=== PATIENT | female | born 1990 | race Caucasian/White ===

== ENCOUNTER 2016-10-04 12:00 | Emergency (ER) | payer OTHER ==
[2016-10-04 13:46] VITALS: BP 110/63
[2016-10-04] MEDS ORDERED: Ibuprofen TAB* 600 MG PO ONE (13:51)
--- NOTE | 2016-10-04 13:51 | UC ---
FLU HPI - HPI Summary HPI Summary: 1 day of cough, chills, body aches, nausea after eating a cheeseburger, - History of Current Complaint Chief Complaint: UCGeneralIllness Stated Complaint: FLU COMPLAINT Time Seen by Provider: 10/04/16 13:32 Hx Obtained From: Patient Hx Last Menstrual Period: 2015- Depo Shot ?: No Onset/Duration: Sudden Onset, Lasting Days - 1, Still Present Severity Currently: Moderate Severity Initially: Moderate Pain Intensity: 5 Pain Scale Used: 0-10 Numeric Associated Signs & Symptoms: Positive: Fever, Myalgia, Cough, Sore Throat, Nasal Congestion, Headache - Allergy/Home Medications Allergies/Adverse Reactions: Allergies Allergy/AdvReac Type Severity Reaction Status Date / Time No Known Allergies Allergy Verified 10/04/16 13:34 Home Medications: Home Medications [id number] W/ APAP [Tylenol Cold & Flu Severe [id number] mg] 2 tab PO PRN 10/04/16 [History] PMH/Surg Hx/FS Hx/Imm Hx Previously Healthy: No Endocrine History Of: Reports: Thyroid Disease - Hyperthryoid Denies: Diabetes Cardiovascular History Of: Denies: Cardiac Disorders, Hypertension, Pacemaker/ICD Respiratory History Of: Reports: Asthma Denies: COPD GI/ History Of: Denies: Ulcer - Surgical History Surgical History: Yes Surgery Procedure, Year, and Place: torsion ovaries as child; Jul 2015 [place] --Right distal tibia-curettage of lesion with bone grafting/prohylactic internal fixation - Family History Known Family History: Positive: Hypertension - Social History Occupation: Unemployed Lives: With Family Alcohol Use: None Substance Use Type: None Substance Use Comment - Amount & Last Used: oxycodone Smoking Status (MU): Current Every Day Smoker Amount Used/How Often: 3 cigarettes/day Have You Smoked in the Last Year: Yes Household Exposure Type: Cigarettes Cessation Counseling: Counseled 3+Min - 10 Min - Immunization History Most Recent Influenza Vaccination: Not UTD Review of Systems Constitutional: Fever, Chills, Fatigue Skin: Negative Eyes: Negative ENT: Sore Throat, Ear Ache, Nasal Discharge Respiratory: Cough Cardiovascular: Negative Gastrointestinal: Negative Genitourinary: Negative Motor: Negative Neurovascular: Negative Musculoskeletal: Arthralgia, Myalgia Neurological: Negative Psychological: Negative All Other Systems Reviewed And Are Negative: Yes Physical Exam Triage Information Reviewed: Yes Appearance: Ill-Appearing - mild, Pain Distress - mild, Thin Vital Signs: Initial Vital Signs Temp 98.3 F 10/04/16 13:38 Pulse 71 10/04/16 13:38 Resp 16 10/04/16 13:38 BP 110/63 10/04/16 13:38 Pulse Ox 99 10/04/16 13:38 Vital Signs Reviewed: Yes Eye Exam: Normal Eyes: Positive: Conjunctiva Clear ENT Exam: Normal ENT: Positive: Normal ENT inspection, Hearing grossly normal, Pharynx normal, Nasal congestion, Nasal drainage, TMs normal. Negative: Tonsillar swelling, Tonsillar exudate, Trismus, Muffled/hoarse voice Dental Exam: Normal Neck exam: Normal Neck: Positive: Supple, Nontender, No Lymphadenopathy Respiratory Exam: Normal Respiratory: Positive: Chest non-tender, Lungs clear, Normal breath sounds, No respiratory distress, No accessory muscle use Cardiovascular Exam: Normal Cardiovascular: Positive: RRR, No Murmur, Pulses Normal, Brisk Capillary Refill Musculoskeletal Exam: Normal Musculoskeletal: Positive: Strength Intact, ROM Intact, No Edema Neurological Exam: Normal Neurological: Positive: Alert, Muscle Tone Normal Psychological Exam: Normal Psychological: Positive: Normal Response To Family Skin Exam: Normal Diagnostics - Laboratory ABG Interpretation: Rapid Flu (A+) Flu Course/Dx - Course Course Of Treatment: Tamiflu, albuterol, robitussin and codiene, increase fluids follow with pcp re-check prn - Differential Dx/Diagnosis Differential Diagnosis/HQI/PQRI: Bronchitis, Influenza, RSV, Upper Respiratory Infection Provider Diagnoses: Influenza A Discharge - Discharge Plan Condition: Stable Disposition: HOME Prescriptions: Albuterol HFA INHALER* [Ventolin HFA Inhaler*] 2 puff INH Q4H PRN #1 mdi PRN Reason: Cough Oseltamivir CAP* [Tamiflu CAP*] 75 mg PO BID #10 cap guaiFENesin/CODIEN 100MG-10MG* [Robitussin AC 100Mg-10Mg*] 5 - 10 ml PO Q4H PRN #90 udc MDD 40 PRN Reason: cough Patient Education Materials: Ibuprofen (By mouth), Clear Liquid Diet (ED), How to Use a Metered-Dose Inhaler (ED), Influenza (ED) Referrals: Adryan Walter MD [Primary Care Provider] - If Needed
== END 2016-10-04 14:35 | disposition home or self-care (01) ==
LOC: UCEAST 12:00
DX: J10.1 Influenza due to other identified influenza virus with other respiratory manifestations (principal); F17.210 Nicotine dependence, cigarettes, uncomplicated; Z71.6 Tobacco abuse counseling
CPT/HCPCS: 87502; 99212; A9270-GY; G0463

== ENCOUNTER 2016-10-08 16:00 | Emergency (ER) | payer OTHER | END 2016-10-08 17:41 | disposition left against medical advice (07) | LOC: UCEAST 16:00 | DX: R05 Cough (principal); M54.9 Dorsalgia, unspecified; Z53.21 Procedure and treatment not carried out due to patient leaving prior to being seen by health care provider ==

== ENCOUNTER 2016-10-08 17:11 | Emergency (ER) | payer OTHER ==
--- NOTE | 2016-10-08 18:00 | ED ---
Respiratory - HPI Summary HPI Summary: 26 F presents with cough for a week. She was seen at and diagnosed with influenza and given tamiflu which she took. Since then her cough has gotten worst. She admits to SOB and posterior rib pain that is constant. She denies any chest pain, palpitations, or swelling in the legs. She is on control and does smoke. She does not have a history of blood clots and denies any recent travel or family history of blood clots. She was given an inhaler at and some cough syrup which she states helps but she ran out of the cough syrup. - History of Current Complaint Chief Complaint: EDBackInjuryPain Stated Complaint: BACK PAIN/COUGH Time Seen by Provider: 10/08/16 17:32 Pain Intensity: 8 - Allergy/Home Medications Allergies/Adverse Reactions: Allergies Allergy/AdvReac Type Severity Reaction Status Date / Time No Known Allergies Allergy Verified 10/08/16 17:16 PMH/Surg Hx/FS Hx/Imm Hx Endocrine/Hematology History: Reports: Hx Thyroid Disease - Hyperthryoid Denies: Hx Diabetes Cardiovascular History: Denies: Hx Hypertension, Hx Pacemaker/ICD Respiratory History: Reports: Hx Asthma Denies: Hx Chronic Obstructive Pulmonary Disease (COPD) GI History: Denies: Hx Ulcer Musculoskeletal History: Reports: 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 Sensory History: Denies: Hx Hearing Aid Psychiatric History: Denies: Hx Panic Disorder - Surgical History Surgery Procedure, Year, and Place: torsion ovaries as child; Jul 2015 [place] --Right distal tibia-curettage of lesion with bone grafting/prohylactic internal fixation - Immunization History Date of Tetanus Vaccine: Unk Date of Influenza Vaccine: Fall 2012 Infectious Disease History: No Infectious Disease History: Denies: Hx Clostridium Difficile, Hx Hepatitis, Hx Human Immunodeficiency Virus (HIV), Hx of Known/Suspected MRSA, Hx Shingles, Hx Tuberculosis, Hx Known/ Suspected VRE, Hx Known/Suspected VRSA, History Other Infectious Disease, Traveled Outside the [place] in Last 30 Days - Family History Known Family History: Positive: Hypertension - Social History Alcohol Use: None Substance Use Type: Reports: None Substance Use Comment - Amount & Last Used: oxycodone Smoking Status (MU): Current Every Day Smoker Amount Used/How Often: 3 cigarettes/day Have You Smoked in the Last Year: Yes Review of Systems Negative: Fever Negative: Chest Pain Positive: Shortness Of Breath, Cough Positive: Nausea. Negative: Abdominal Pain, Vomiting, Diarrhea All Other Systems Reviewed And Are Negative: Yes Physical Exam Triage Information Reviewed: Yes Vital Signs On Initial Exam: Initial Vitals Temp Pulse Resp BP Pulse Ox 98.6 F 69 18 118/61 100 10/08/16 17:13 10/08/16 17:13 10/08/16 17:13 10/08/16 17:13 10/08/16 17:13 Vital Signs Reviewed: Yes Appearance: Positive: Well-Appearing Skin: Positive: Warm, Dry Head/Face: Positive: Normal Head/Face Inspection Eyes: Positive: Normal, Conjunctiva Clear ENT: Positive: Normal ENT inspection, Pharynx normal, TMs normal Neck: Positive: Supple, Nontender, No Lymphadenopathy Respiratory/Lung Sounds: Positive: Clear to Auscultation, Breath Sounds Present , Other - neg egophony Cardiovascular: Positive: Normal, RRR Abdomen Description: Positive: Nontender, Soft Bowel Sounds: Positive: Present Diagnostics - Vital Signs Vital Signs Temp Pulse Resp BP Pulse Ox 10/08/16 17:13 98.6 F 69 18 118/61 100 - Laboratory Result Diagrams: 10/08/16 18:00 10/08/16 18:00 Lab Statement: Any lab studies that have been ordered have been reviewed, and results considered in the medical decision making process. - Radiology chest Xray Interpretation: No Acute Changes - IMPRESSION: No radiographic evidence of acute cardiopulmonary disease. Radiology Interpretation Completed By: Radiologist Disposition - Course Course Of Treatment: 26 F presents with cough for a week. admits to SOB, nausea , and rib pain to the back. lungs CTA. pulse ox:100 and normal heart rate. has risk factors for PE: smoking, control will do d-dimer. d-dimer normal. labs normal. chest xray normal. will treat with zofran and cough suppressant, explained cough can last up to 4 weeks, will have follow up with primary, patient understands and agrees with plan - Differential Dx - Cardiopulmonary Differential Diagnoses - Cardiopulmonary: Bronchitis, Influenza, Pulmonary Embolism, Other - pneumonia - Diagnoses Provider Diagnoses: Cough Discharge - Discharge Plan Condition: Good Disposition: HOME Prescriptions: Ondansetron ODT TAB* [Zofran Odt TAB*] 4 mg PO Q6H PRN #10 tab.odt PRN Reason: Nausea guaiFENesin/CODIEN 100MG-10MG* [Robitussin AC 100Mg-10Mg*] 5 ml PO Q4H PRN #120 udc MDD 6 PRN Reason: Cough Patient Education Materials: Acute Bronchitis (ED) Referrals: Adryan Walter MD [Primary Care Provider] - Additional Instructions: Take cough suppressant 5ml (1 teaspon) every 4 hours as need for cough Use inhaler two puff every 4 hours for cough as needed Take zofran every 6 hours as needed for nausea Use saline in the nose Use humidifier or place warm bowls of water around the room Take Tylenol and ibuprofen for pain/fever every 6 hours Increase fluid intake and eat small amounts of food as tolerated Follow up with primary care physician if no improvement in 5 days Return to ED if develop chest pain , shortness of breath, or any new or worsening symptoms
[2016-10-08 18:12] LABS: Hematocrit 39 % (35-47); Hemoglobin 13.4 g/dl (12.0-16.0); Mean Corpuscular HGB Conc 34 g/dl (31-36); Mean Corpuscular Hemoglobin 30 pg (27-31); Mean Corpuscular Volume 89 fL (80-97); Mean Platelet Volume 9 um3 (7.4-10.4); Red Blood Count 4.44 10^6/ul (4.0-5.4); Red Cell Distribution Width 13 % (10.5-15); White Blood Count 6.6 10^3/ul (3.5-10.8)
[2016-10-08 18:28] LABS: Albumin 4.2 g/dL (3.2-5.2); BUN/Creatinine Ratio 20.3 (8-20); Calcium 9.4 mg/dL (8.6-10.3); EGFR Non-African American 94.9 (>60); Potassium 3.5 mmol/L (3.5-5.0); Total Bilirubin 0.3 mg/dL (0.2-1.0); Total Protein 7.2 g/dL (6.4-8.9)
--- NOTE | 2016-10-08 18:42 | RAD ---
INDICATION: Back pain and cough COMPARISON: None TECHNIQUE: PA and lateral views of the chest were obtained. FINDINGS: The heart and mediastinum are normal in size and contour. The lungs are grossly clear. There is no evidence of large pleural effusion. Visualized bones are normal for the patient's age. There is no radiographic evidence of free air beneath the diaphragm IMPRESSION: No radiographic evidence of acute cardiopulmonary disease.
[2016-10-08] MEDS ORDERED: guaiFENesin/CODIEN 100MG-10MG* 5 ML UDC PO ONE (19:28)
[2016-10-08 20:04] VITALS: BP 110/73
== END 2016-10-08 20:00 | disposition home or self-care (01) ==
LOC: ED 17:11
DX: R05 Cough (principal); R06.02 Shortness of breath; R11.0 Nausea; F17.210 Nicotine dependence, cigarettes, uncomplicated
CPT/HCPCS: 36415; 71020; 80053; 85025; 85379; 86141; 99282; A9270-GY

== ENCOUNTER 2017-08-20 21:00 | Emergency (ER) | payer OTHER ==
[2017-08-20] MEDS ORDERED: Fluorescein Sodium TOPICAL* 1 MG TEST ONE (22:02)
[2017-08-20] MEDS ORDERED: Tetracaine 0.5% OPTH.SOL 4 ML* 1 DROP BTL ONE (22:02)
[2017-08-20] MEDS ORDERED: Artificial Tears* 15 ML BTL RIGHT EYE ONE (22:19)
[2017-08-20 22:44] VITALS: BP 116/68
[2017-08-20] MEDS ORDERED: Fluorescein Sodium TOPICAL* 1 MG TEST OPHTHALMIC ONE (22:50)
[2017-08-20] MEDS ORDERED: Tetracaine 0.5% OPTH.SOL 4 ML* 1 DROP BTL RIGHT EYE ONE (22:50)
--- NOTE | 2017-08-31 15:44 | ED ---
Throat Pain/Nasal Congestion - HPI Summary HPI Summary: Pt here w/ Rt eye discomfort which started earlier today. [place] like something went into her eye when she opened a spice cupboard earlier today. A FB has not been identified. She then rinsed her eye with her mother's contact cleaning solution (not plain saline). Pain worse since using this. Eye is irritated but not watering, no d/c, no change in vision, photophobia or pain w/ movement. Reports she feels like something is scratching her eye. Does not wear contact lenses and has not used makeup today. - History of Current Complaint Chief Complaint: EDEyeProblem Time Seen by Provider: 08/20/17 21:18 Hx Obtained From: Patient, Family/Senior Windows Engineer - mom - Allergies/Home Medications Allergies/Adverse Reactions: Allergies Allergy/AdvReac Type Severity Reaction Status Date / Time No Known Allergies Allergy Verified 10/08/16 17:16 PMH/Surg Hx/FS Hx/Imm Hx Previously Healthy: Yes Endocrine/Hematology History: Reports: Hx Thyroid Disease - Hyperthryoid Denies: Hx Diabetes Cardiovascular History: Denies: Hx Hypertension, Hx Pacemaker/ICD Respiratory History: Reports: Hx Asthma Denies: Hx Chronic Obstructive Pulmonary Disease (COPD) GI History: Denies: Hx Ulcer Musculoskeletal History: Reports: 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 Sensory History: Denies: Hx Contacts or Glasses, Hx Hearing Aid Opthamlomology History: Denies: Hx Contacts or Glasses Psychiatric History: Denies: Hx Panic Disorder - Surgical History Surgery Procedure, Year, and Place: torsion ovaries as child; Jul 2015 [place] --Right distal tibia-curettage of lesion with bone grafting/prohylactic internal fixation - Immunization History Date of Tetanus Vaccine: Unk Date of Influenza Vaccine: Fall 2012 Infectious Disease History: No Infectious Disease History: Denies: Hx Clostridium Difficile, Hx Hepatitis, Hx Human Immunodeficiency Virus (HIV), Hx of Known/Suspected MRSA, Hx Shingles, Hx Tuberculosis, Hx Known/ Suspected VRE, Hx Known/Suspected VRSA, History Other Infectious Disease, Traveled Outside the [place] in Last 30 Days - Family History Known Family History: Positive: Hypertension - Social History Lives: With Family Alcohol Use: None Hx Substance Use: No Substance Use Type: Reports: None Substance Use Comment - Amount & Last Used: oxycodone Hx Tobacco Use: Yes Smoking Status (MU): Current Every Day Smoker Amount Used/How Often: 3 cigarettes/day Have You Smoked in the Last Year: Yes Review of Systems Constitutional: Negative Negative: Fever, Chills, Fatigue Positive: Erythema. Negative: Photophobia, Blurred Vision, Diplopia, Drainage ENT: Negative Negative: Epistaxis, Dental Pain, Sore Throat, Ear Ache, Nasal Discharge Cardiovascular: Negative Respiratory: Negative Gastrointestinal: Negative Positive: no symptoms reported Musculoskeletal: Negative Skin: Negative Negative: Rash Neurological: Negative Negative: Headache Positive: Anxious All Other Systems Reviewed And Are Negative: Yes Physical Exam Triage Information Reviewed: Yes Vital Signs On Initial Exam: Initial Vitals Temp Pulse Resp BP Pulse Ox 98.0 F 81 16 113/50 98 08/20/17 21:00 08/20/17 21:00 08/20/17 21:00 08/20/17 21:00 08/20/17 21:00 Vital Signs Reviewed: Yes Appearance: Positive: Well-Appearing, Well-Nourished, Pain Distress - Pt does not appear to be in distress during her daughter's URI evaluation (they came in together today) but appears to be in distress, holding eye when she is being evaluated Skin: Positive: Warm, Skin Color Reflects Adequate Perfusion, Dry - no edema or erythema of tissue about the orbital/periorbital region Head/Face: Positive: Normal Head/Face Inspection - NTTP, no edema Eyes: Positive: EOMI, CATHERINE, Conjunctiva Clear, Other: - sclera w/ mild injection. Negative: Discharge ENT: Positive: Normal ENT inspection, Hearing grossly normal, Pharynx normal, TMs normal. Negative: Pharyngeal erythema, Nasal congestion, Nasal drainage Neck: Positive: Supple, Nontender, No Lymphadenopathy Respiratory/Lung Sounds: Positive: Breath Sounds Present Cardiovascular: Positive: Normal Musculoskeletal: Positive: Normal, Strength/ROM Intact Neurological: Positive: Normal, Sensory/Motor Intact, Alert, Oriented to Person Place, Time, CN Intact II-III Psychiatric: Positive: Anxious - agitated, anxious - Romeo Coma Scale Coma Scale Total: 15 Procedures - Eye Procedure Alcaine Drops Administered: No - tetracaine Eye FB Removal: removal w/ cotton swab - <1mm brown evelyn observed and removed from 12:00 within iris Eye Irrigated w/ Saline (ccs): 5 - pt reports relief Diagnostics - Vital Signs Vital Signs Temp Pulse Resp BP Pulse Ox 08/20/17 22:42 97.8 F 86 18 116/68 98 08/20/17 21:00 98.0 F 81 16 113/50 98 - Laboratory Lab Statement: Any lab studies that have been ordered have been reviewed, and results considered in the medical decision making process. Re-Evaluation - Re-Evaluation First Eval Change: Improved - pt reports relief after tetracaine drops, removal of object and saline flush - still has some irritation EENT Course/Dx - Course Course Of Treatment: Pt appears to have a tiny evelyn of FB in eye - suspect this may be what was causing her issues - no abrasion, no Siedel's sign observed on fluouresceine exam. Pt may have residual irritation from evelyn as it may be a spice from cupboard incident earlier in the day. Discussed the importance of flushing her eye with saline to help remove irritant and f/u w/ Ophtholomogist tomorrow if sx persist. If danger s/sx present, return to ED. Pt agrees w/ plan. - Diagnoses Provider Diagnoses: Foreign body of right eye Discharge - Discharge Plan Condition: Stable Disposition: HOME Patient Education Materials: Eye Foreign Body (ED) Referrals: Tucker Mott MD [Medical Doctor] - Additional Instructions: You appear to have had a small evelyn in your eye - this was flushed out and no abrasion was identified. It is recommended that you flush your eye with saline eye wash 5-6 x over the next 24 hours (while awake) to reduce irritation/ discomfort. If symptoms persist, call Dr. Mott's office tomorrow for further evaluation. *If you have abrupt loss of vision, change in vision, return to ED
== END 2017-08-20 22:42 | disposition home or self-care (01) ==
LOC: ED 21:00
DX: T15.91XA Foreign body on external eye, part unspecified, right eye, initial encounter (principal); X58.XXXA Exposure to other specified factors, initial encounter; Y92.9 Unspecified place or not applicable; F17.210 Nicotine dependence, cigarettes, uncomplicated; E05.90 Thyrotoxicosis, unspecified without thyrotoxic crisis or storm
CPT/HCPCS: 99282; A9270-GY

== ENCOUNTER 2018-06-23 15:37 | Emergency (ER) | payer OTHER ==
[2018-06-23 16:13] VITALS: BP 99/58
--- NOTE | 2018-06-23 16:49 | UC ---
Complaint Female HPI - HPI Summary HPI Summary: 3 days of R flank pain w/ intermittent dysuria, vaginal discharge. has hx of ovarian torsion and kidney stones. uses depo for control. Appendectomy in the past. - History Of Current Complaint Chief Complaint: UCGU Stated Complaint: BACK PAIN Time Seen by Provider: 06/23/18 16:47 Hx Obtained From: Patient Hx Last Menstrual Period: on depo ?: No - on depo Onset/Duration: Gradual Onset Timing: Intermittent Severity Initially: Mild Severity Currently: Moderate Pain Intensity: 8 Pain Scale Used: 0-10 Numeric Radiates to: R side/R pelvic area Character: Dull, Cramping Aggravating Factor(s): Urination Alleviating Factor(s): Nothing Associated Signs And Symptoms: Positive: Back Pain, Vaginal Discharge Related Hx: Similar Episode/Dx as: - kidney stone in past. - Allergies/Home Medications Allergies/Adverse Reactions: Allergies Allergy/AdvReac Type Severity Reaction Status Date / Time No Known Allergies Allergy Verified 06/23/18 16:14 PMH/Surg Hx/FS Hx/Imm Hx - Surgical History Surgical History: Yes - appendectomy per pt. Surgery Procedure, Year, and Place: torsion ovaries as child; Jul 2015 [place] --Right distal tibia-curettage of lesion with bone grafting/prohylactic internal fixation - Family History Known Family History: Positive: Hypertension - Social History Alcohol Use: None Substance Use Type: None Substance Use Comment - Amount & Last Used: oxycodone Smoking Status (MU): Current Every Day Smoker Amount Used/How Often: 3 cigarettes/day Have You Smoked in the Last Year: Yes Household Exposure Type: Cigarettes - Immunization History Most Recent Influenza Vaccination: Not UTD Review of Systems Constitutional: Negative Skin: Negative Gastrointestinal: Abdominal Pain - RLQ Genitourinary: Dysuria, Vaginal/Penile Discharge All Other Systems Reviewed And Are Negative: Yes Physical Exam Triage Information Reviewed: Yes Appearance: Well-Appearing Vital Signs: Initial Vital Signs Temp 97.5 F 06/23/18 16:08 Pulse 83 06/23/18 16:08 Resp 15 06/23/18 16:08 BP 99/58 06/23/18 16:08 Pulse Ox 99 06/23/18 16:08 Vital Signs Reviewed: Yes Respiratory Exam: Normal Cardiovascular Exam: Normal Abdomen Description: Positive: Soft, CVA Tenderness (R), Other: - Mild tenderness RLQ. Negative: CVA Tenderness (L), Distended, Guarding Pelvic Exam: Positive: External Exam Normal, Speculum Exam Normal, No Cerv. 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 reviewed old US showing R renal calculi. neg. UA and neg. test. likely renal stone and strongly recommended going to ED. does have hx of R ovarian torsion but pt feels the pain is much different. - Differential Dx/Diagnosis Differential Diagnosis/HQI/PQRI: Cervicitis, Ovarian Cyst, Ovarian Torsion, Pelvic Inflammatory Disease, , Renal Colic, Retained Foreign Body, Tubo -ovarian Abscess, Ureteral Stone, Urinary Tract Infection Provider Diagnoses: R FLANK PAIN; VAGINAL DISCHARGE Discharge - Sign-Out/Discharge Documenting (check all that apply): Patient Departure All imaging exams completed and their final reports reviewed: No Studies - Discharge Plan Condition: Good Disposition: HOME-RECOMMEND TO ED Patient Education Materials: Flank Pain (ED) Referrals: Joann Mazariegos NP [Primary Care Provider] - Additional Instructions: We will call you with the results from the swab test. I recommend going to the ED to evaluate possible kidney stone given your exam, history of kidney stone. It does NOT appear that you have a urinary tract infection and your test was negative. You also have a history of ovarian torsion but again, that would be evaluated with Cat Scan at the Emergency room. - Billing Disposition and Condition Condition: GOOD Disposition: Home-Recommend to ED
--- NOTE | 2018-06-25 16:56 | UC ---
- Progress Note Progress Note: neg GC/CH no change ljj 06/25/18 Discharge - Sign-Out/Discharge Documenting (check all that apply): Post-Discharge Follow Up All imaging exams completed and their final reports reviewed: No Studies - Discharge Plan Condition: Good Disposition: HOME-RECOMMEND TO ED Patient Education Materials: Flank Pain (ED) Referrals: Joann Mazariegos NP [Primary Care Provider] - Additional Instructions: We will call you with the results from the swab test. I recommend going to the ED to evaluate possible kidney stone given your exam, history of kidney stone. It does NOT appear that you have a urinary tract infection and your test was negative. You also have a history of ovarian torsion but again, that would be evaluated with Cat Scan at the Emergency room. - Billing Disposition and Condition Condition: GOOD Disposition: Home-Recommend to ED
== END 2018-06-23 17:40 | disposition home health service (06) ==
LOC: UCEAST 15:37
DX: R10.30 Lower abdominal pain, unspecified (principal); N89.8 Other specified noninflammatory disorders of vagina; F17.210 Nicotine dependence, cigarettes, uncomplicated
CPT/HCPCS: 81003; 84702; 87491; 87591; 99212; G0463

== ENCOUNTER 2018-06-25 08:13 | Emergency (ER) | payer OTHER ==
[2018-06-25] MEDS ORDERED: NS 0.9% 1000 ML* 1,000 ML IV ONE (08:53)
[2018-06-25] MEDS ORDERED: Ketorolac INJ* 30 MG/ML 1 ML VIAL IV PUSH ONE (08:53)
[2018-06-25] MEDS ORDERED: Ondansetron INJ* 2 MG/ML VIAL IV ONE (08:53)
--- NOTE | 2018-06-25 08:57 | ED ---
Abdominal Pain/Female - HPI Summary HPI Summary: 27-year-old female with history of right ovarian torsion presents with 3 days of right flank pain radiating into the groin area. She presented to community health care just prior to this and had negative urinalysis aside from trace blood. She was sent here for CT scan to rule out stones. She states the pain is intermittent in nature and sharp. There is nothing that makes it better or provokes it. She denies any fever or vomiting but has had nausea and chills. She reports difficulty urinating where she is only going small amounts and some burning. She denies any vaginal symptoms or possibility of as she is on Depo-Provera. - History of Current Complaint Chief Complaint: EDFlankPain Stated Complaint: FLANK PAIN RT SIDE [id number] Time Seen by Provider: 06/25/18 08:47 Hx Obtained From: Patient Hx Last Menstrual Period: on depo Onset/Duration: Gradual Onset Pain Intensity: 8 Allergies/Adverse Reactions: Allergies Allergy/AdvReac Type Severity Reaction Status Date / Time No Known Allergies Allergy Verified 06/25/18 08:23 Home Medications: Home Medications Gabapentin 900 mg PO TID 06/25/18 [History Confirmed 06/25/18] Suboxone 12 mg-3 mg Sl Film 1 tab DAILY 06/25/18 [History Confirmed 06/25/18] PMH/Surg Hx/FS Hx/Imm Hx Previously Healthy: Yes Endocrine/Hematology History: Reports: Hx Thyroid Disease - Hyperthryoid Denies: Hx Diabetes Cardiovascular History: Denies: Hx Hypertension, Hx Pacemaker/ICD Respiratory History: Reports: Hx Asthma Denies: Hx Chronic Obstructive Pulmonary Disease (COPD) GI History: Denies: Hx Ulcer Musculoskeletal History: Reports: 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 Right ovary remains. - Immunization History Date of Tetanus Vaccine: Unk Date of Influenza Vaccine: Fall 2012 Infectious Disease History: No Infectious Disease History: Denies: Hx Clostridium Difficile, Hx Hepatitis, Hx Human Immunodeficiency Virus (HIV), Hx of Known/Suspected MRSA, Hx Shingles, Hx Tuberculosis, Hx Known/ Suspected VRE, Hx Known/Suspected VRSA, History Other Infectious Disease, Traveled Outside the [place] in Last 30 Days - Family History Known Family History: Positive: Hypertension - Social History Lives: With Family Alcohol Use: None Hx Substance Use: No Substance Use Type: Reports: None Substance Use Comment - Amount & Last Used: oxycodone Hx Tobacco Use: Yes Smoking Status (MU): Current Every Day Smoker Amount Used/How Often: 3 cigarettes/day Have You Smoked in the Last Year: Yes Review of Systems Positive: Chills. Negative: Fever Respiratory: Negative Positive: Abdominal Pain, Nausea. Negative: Vomiting Positive: burning, urgency. Negative: hematuria Musculoskeletal: Negative All Other Systems Reviewed And Are Negative: Yes Physical Exam Triage Information Reviewed: Yes Vital Signs On Initial Exam: Initial Vitals Temp Pulse Resp BP Pulse Ox 98.4 F 79 20 115/66 97 06/25/18 08:20 06/25/18 08:20 06/25/18 08:20 06/25/18 08:20 06/25/18 08:20 Vital Signs Reviewed: Yes Appearance: Positive: Well-Appearing, No Pain Distress, Well-Nourished Skin: Positive: Warm, Skin Color Reflects Adequate Perfusion, Dry Eyes: Positive: EOMI ENT: Positive: Pharynx normal Neck: Positive: Supple Respiratory/Lung Sounds: Positive: Clear to Auscultation Cardiovascular: Positive: RRR Abdomen Description: Positive: Nontender, No Organomegaly, Soft. Negative: CVA Tenderness (R), CVA Tenderness (L), Distended, Guarding, McBurney's Point Tenderness Bowel Sounds: Positive: Present Musculoskeletal: Positive: Normal, Strength/ROM Intact Neurological: Positive: Normal, Sensory/Motor Intact, Alert, Oriented to Person Place, Time Psychiatric: Positive: Normal AVPU Assessment: Alert Diagnostics - Vital Signs Vital Signs Temp Pulse Resp BP Pulse Ox 06/25/18 08:20 98.4 F 79 20 115/66 97 - Laboratory Result Diagrams: 06/25/18 08:55 06/25/18 08:55 Lab Statement: Any lab studies that have been ordered have been reviewed, and results considered in the medical decision making process. - Radiology US transvag Radiology Interpretation Completed By: Radiologist - No torsion. Small ovarian cyst on the left. - CT abdomen pelvis CT Interpretation Completed By: Radiologist - No acute findings Re-Evaluation - Re-Evaluation First Eval Change: Improved - with toradol. Abdominal Pain Fem Course/Dx - Course Course Of Treatment: Patient with intermittent right flank pain over several days. Urinary symptoms but urine is negative aside from blood in the urine. CT is negative for acute inflammation or evidence of ureterolithiasis. Possibility of passed stone. Patient is quite comfortable here even prior to treatment. Ultrasound was used to evaluate the ovaries which she has had a torsion in the past. There is no torsion and only a small cyst on the left. She is discharged in good condition. - Diagnoses Differential Diagnosis: Positive: Appendicitis, Constipation, Ectopic , Irritable Bowel Syndrome, Ovarian Cyst, Pancreatitis, Pelvic Inflammatory Disease, , Urinary Tract Infection Provider Diagnoses: Acute right flank pain, Renal colic on right side Discharge - Sign-Out/Discharge Documenting (check all that apply): Patient Departure - Discharge Plan Condition: Improved Disposition: HOME Prescriptions: Naproxen [Naproxen 500 mg tab] 500 mg PO BID PRN #12 tablet.dr CARRILLO Reason: Pain Patient Education Materials: Renal Colic (ED) Forms: *Work Release Referrals: Joann Mazariegos NP [Primary Care Provider] - Additional Instructions: Drink plenty of fluids. Return with fever, increased pain, vomiting, pelvic pain, worse or other concerns. Call your doctor today to schedule prompt follow -up. - Billing Disposition and Condition Condition: IMPROVED Disposition: Home - Attestation Statements Document Initiated by Scribe: No
[2018-06-25 09:01] LABS: ABS Basophils 0 10^3/ul (0-0.2); ABS Eosinophils 0.1 10^3/ul (0-0.6); ABS Lymphocytes 2.3 10^3/ul (1.0-4.8); ABS Monocytes 0.5 10^3/ul (0-0.8); ABS Nucleated RBC 0 10^3/ul; Hematocrit 40 % (35-47); Hemoglobin 14.1 g/dl (12.0-16.0); Lymphocyte % 39.5 % (25-47); Mean Corpuscular HGB Conc 35 g/dl (31-36); Mean Corpuscular Hemoglobin 31 pg (27-31); Mean Corpuscular Volume 87 fL (80-97); Mean Platelet Volume 8.3 um3 (7.4-10.4); Nucleated Red Blood Cells % 0.1; Platelet Count 239 10^3/ul (150-450); Red Blood Count 4.56 10^6/ul (4.00-5.40); Red Cell Distribution Width 12 % (10.5-15); White Blood Count 5.9 10^3/ul (3.5-10.8)
[2018-06-25 09:23] LABS: EGFR Non-African American 113.4 (>60)
--- NOTE | 2018-06-25 09:44 | RAD ---
INDICATION: RIGHT flank pain. Hematuria. History of urolithiasis. Post appendectomy. COMPARISON: July 04, 2013 CT TECHNIQUE: Multidetector CT images were obtained from the lung bases to the ischial tuberosities. No oral contrast administered. Assessment of the visceral limited without IV contrast. Multiplanar reformation. REPORT: VISUALIZED INFERIOR THORAX: Unremarkable. LIVER / GALLBLADDER / PANCREAS / SPLEEN: Unremarkable liver and gallbladder. Negative for intrahepatic biliary dilatation. Upper normal diameter common bile duct without change. Unremarkable unenhanced pancreas. Upper normal size spleen with variant lobular contour. ALIMENTARY TRACT: No CT abnormality of the upper GI, small bowel, or colon. Post appendectomy. Negative for ascites, free air, or significant hernias. MESENTERIC: Unremarkable. ADRENAL / GENITOURINARY: Normal adrenal glands. Few punctate 1 -- 2 mm nonobstructing calyceal stones at the LEFT kidney. Negative for hydronephrosis. Negative for ureteral stones. Phleboliths noted along the course of the distal ureters. Unremarkable largely decompressed urinary bladder. Unremarkable anteverted uterus and RIGHT adnexal region. 1.3 cm water density LEFT ovarian cyst most consistent with a follicular cyst. RETROPERITONEAL: Negative for lymphadenopathy. VASCULAR: Normal diameter abdominal aorta. Physiologic distention of the IVC. BONES: Negative for suspicious osseous lesions. SOFT TISSUE: Unremarkable. IMPRESSION: #. Few punctate 1 -- 2 mm nonobstructing calyceal stones at the LEFT kidney. No RIGHT kidney stones visualized. Negative for hydronephrosis. Negative for ureteral stones. #. Post appendectomy. No acute pathologic process of the alimentary tract evident. #. Unchanged finding of top normal diameter of the common bile duct.
[2018-06-25 10:11] LABS: Urine Appearance Clear; Urine Blood Negative (Negative); Urine Color Yellow; Urine Ketones Negative (Negative); Urine Protein Negative (Negative); Urine Red Blood Cell Absent (Absent); Urine Specific Gravity 1.023 (1.010-1.030); Urine Urobilinogen Negative (Negative); Urine White Blood Cell Trace(0-5/hpf) (Absent)
--- NOTE | 2018-06-25 11:30 | RAD ---
Indication: 5 days RIGHT side abdominal/flank pain. Comparison: June 25, 2018 CT. Technique: Transvaginal pelvic ultrasound. Report: Unremarkable 6.2 x 2.4 x 3.9 cm anteverted uterus with 2.2 mm endometrium. Trace fluid in the endometrial cavity. Negative for free pelvic fluid. 2.7 x 1.8 x 2.9 cm RIGHT ovary with documented vascular flow is remarkable for small follicles only. 2.5 x 2.3 x 2.2 cm LEFT ovary with documented vascular flow is remarkable for a 1.7 cm diameter unilocular simple cyst consistent with a follicular cyst without concern. No visualized extra ovarian adnexal region lesions evident. IMPRESSION: #. 1.7 cm follicular cyst at the LEFT ovary corresponding with the CT finding without concern.
[2018-06-25 12:04] VITALS: BP 109/63
== END 2018-06-25 12:03 | disposition home or self-care (01) ==
LOC: ED 08:13
DX: R10.9 Unspecified abdominal pain (principal); N23 Unspecified renal colic; J45.909 Unspecified asthma, uncomplicated; F17.210 Nicotine dependence, cigarettes, uncomplicated; E05.90 Thyrotoxicosis, unspecified without thyrotoxic crisis or storm; N83.02 Follicular cyst of left ovary
CPT/HCPCS: 36415; 74176; 76830; 80053; 81003; 81015; 83605; 83690; 84702; 85025; 86140; 87086; 96361; 96374; 96375; 99283; J1885; J2405

== ENCOUNTER 2018-08-07 15:22 | Emergency (ER) | payer OTHER ==
--- NOTE | 2018-08-07 16:57 | UC ---
Complaint Female HPI - HPI Summary HPI Summary: 27 y/o female presents to the urgent care c/o severe sore throat for the past 3 days and a vaginal discharge that itches a lot for the past 5 days. Pain w/ swallowing is 8/10 associated w/ hoarseness and clear nasal discharge. This morning she experienced a burning sensation when she urinates, but denies frequency. Pt has not taken anything today for her sore throat. Pt denies fever , SOB, cough, chest pain, abdominal pain, pelvic pain, lower back pain, flank pain, N/V/d. 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 LMP; 2 years ago and on Depo. - History Of Current Complaint Chief Complaint: UCGeneralIllness Stated Complaint: THROAT PAIN Time Seen by Provider: 08/07/18 16:44 Hx Obtained From: Patient Hx Last Menstrual Period: depo ?: No Onset/Duration: Gradual Onset, Lasting Days - 5 days, Still Present, Worse Since - today Timing: Constant Severity Initially: Mild Severity Currently: Moderate Pain Intensity: 8 - sore throat Pain Scale Used: 0-10 Numeric Character: Burning Aggravating Factor(s): Strang, Urination Alleviating Factor(s): Nothing Associated Signs And Symptoms: Positive: Vaginal Discharge - w/ itchiness. Negative: Fever, Back Pain, Nausea, Vomiting(# Of Episodes =), Genital Swelling , Genital Blisters - Risk Factors Ectopic Risk Factor: Negative Ovarian Torsion Risk Factor: Negative - Allergies/Home Medications Allergies/Adverse Reactions: Allergies Allergy/AdvReac Type Severity Reaction Status Date / Time No Known Allergies Allergy Verified 08/07/18 16:36 PMH/Surg Hx/FS Hx/Imm Hx Previously Healthy: Yes Respiratory History: Asthma - Surgical History Surgical History: Yes Surgery Procedure, Year, and Place: torsion ovaries as child; Jul 2015 [place] --Right distal tibia-curettage of lesion with bone grafting/prohylactic internal fixation; appendix removed during torsion surgery. Right ovary remains. - Family History Known Family History: Positive: Hypertension, Diabetes Family History: lupus - Social History Occupation: Employed Full-time Lives: With Family Alcohol Use: None Substance Use Type: None Substance Use Comment - Amount & Last Used: oxycodone Smoking Status (MU): Heavy Every Day Tobacco Smoker Amount Used/How Often: 3 cigarettes/day Have You Smoked in the Last Year: Yes Household Exposure Type: Cigarettes - Immunization History Most Recent Influenza Vaccination: Not UTD Review of Systems All Other Systems Reviewed And Are Negative: Yes Constitutional: Positive: Negative Skin: Positive: Negative Eyes: Positive: Negative ENT: Positive: Sore Throat, Nasal Discharge - clear, Sinus Congestion, Other - hoarseness Respiratory: Positive: Negative Cardiovascular: Positive: Negative Gastrointestinal: Positive: Negative Genitourinary: Positive: Dysuria, Vaginal/Penile Burning, Vaginal/Penile Itching , Vaginal/Penile Discharge Motor: Positive: Negative Neurovascular: Positive: Negative Musculoskeletal: Positive: Negative Neurological: Positive: Negative Psychological: Positive: Negative Is Patient Immunocompromised?: No Physical Exam - Summary Physical Exam Summary: VITAL SIGNS: Reviewed. GENERAL: Patient is a well developed and nourished female , hematomas or skull depressions. No sinus tenderness. EYES: PERRLA, EOMI x 2, No injected conjunctiva, no nystagmus. No photophobia. EARS: Hearing grossly intact. Ear canals and tympanic membranes are within normal limits. Nose: edematous and erythematous nasal mucosa w/ clear nasal discharge. MOUTH: Positive no erythema, no tonsillar enlargement. Uvula in midline. NECK: Supple, trachea is midline, Positive anterior cervical lymphadenopathy, no JVD, no carotid bruit, no c-spine tenderness, neck with full ROM. No meningeal signs, no Kernig's or brudzinskis signs. CHEST: Symmetric, no tenderness at palpation LUNGS: Clear to auscultation bilaterally. No wheezing or crackles. CVS: Regular rate and rhythm, S1 and S2 present, no murmurs or gallops appreciated. ABDOMEN: Soft, non-tender. No signs of distention. No rebound no guarding, and no masses palpated. Bowel sounds are normal. Pelvic: I was assited by Nurse Vickie. External genitalia within normal limits. There is no lesions there is no masses noted. Speculum exam: The vaginal gambino are within normal limits w/ mix cottage cheese greyish vaginal discharge, no the lesions or rashes. The cervix is closed with no lesions or masses. There is no CMT's, and no adnexal masses. Sample sent to Lab for G/C and Affirm panel. EXTREMITIES: FROM in all major joints, no edema, no cyanosis or clubbing. NEURO: Alert and oriented x 3. No acute neurological deficits. Speech is normal and follows commands. SKIN: Dry and warm Triage Information Reviewed: Yes Vital Signs: Initial Vital Signs Temp 98.1 F 08/07/18 16:30 Pulse 88 08/07/18 16:30 Resp 16 08/07/18 16:30 BP 118/65 08/07/18 16:30 Pulse Ox 100 08/07/18 16:30 Complaint Female Dx - Course Course Of Treatment: 27 y/o female presents to the urgent care c/o severe sore throat for the past 3 days and a vaginal discharge that itches a lot for the past 5 days. Pain w/ swallowing is 8/10 associated w/ hoarseness and clear nasal discharge. This morning she experienced a burning sensation when she urinates, but denies frequency. Pt has not taken anything today for her sore throat. Pt denies fever, SOB, cough, chest pain, abdominal pain, pelvic pain, lower back pain, flank pain, N/V/d. 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 LMP; 2 years ago and on Depo. Hx obtained. pt w/ URI and bulbovaginal candidiasis and possible BV. UA ordered, result:trace leukoesteraces. test: negative. Pt educated on STD's. Advised to f/u with CREATIVE DIRECTOR for PAP. Specimen were sent to lab, Advised she will be notified if any abnormal result from lab.Pt Rx ibuprofen PO for her sore throat. First dose given at the clinic. Pt tolerated well medication and felt better. Pt also Rx metrogel vaginal cream and fluconazole to alleviate her symptoms. D/C instructions explained. Pt understood and agreed with plan of care. - Differential Dx/Diagnosis Differential Diagnosis/HQI/PQRI: Cervicitis, Pelvic Inflammatory Disease, , Renal Colic, Sexually Transmitted Disease, Ureteral Stone, Urinary Tract Infection, Other - URI, pharyngitis, tonsillitis Provider Diagnosis: Candidiasis of genitalia in female, Bacterial vaginosis, Screening for STD ( sexually transmitted disease), URI (upper respiratory infection) Discharge - Sign-Out/Discharge Documenting (check all that apply): Patient Departure - d/C home All imaging exams completed and their final reports reviewed: No Studies - Discharge Plan Condition: Stable Disposition: HOME Prescriptions: Fluconazole 150 MG TAB* [Diflucan 150 MG TAB*] 150 mg PO ONCE #1 tablet Ibuprofen TAB* [Motrin TAB* 800 MG] 800 mg PO Q6H #30 tab metroNIDAZOLE VAGINAL 0.75%* 1 applic VAGINAL BEDTIME #1 anuj Patient Education Materials: Bacterial Vaginosis (ED), Upper Respiratory Infection (ED), Yeast Infection (ED) Forms: *Work Release Referrals: Joann Mazariegos NP [Primary Care Provider] - 3 Days Additional Instructions: 1-Please f/u with CREATIVE DIRECTOR for a PAP and further management in your Hx HPV. 2- Please take medications as directed. 3- Take Ibuprofen PO q6-8hrs prn after meals to alleviate swelling and sore throat 3- Specimen were sent to lab, if anything abnormal you will receive a call from us for further treatment. 4-If not improvement of symptoms please return to the urgent care or f/u with your CREATIVE DIRECTOR in 3 days for further treatment - Billing Disposition and Condition Condition: STABLE Disposition: Home
[2018-08-07] MEDS ORDERED: Ibuprofen TAB* 400 MG PO ONE (18:23)
[2018-08-07 18:41] VITALS: BP 116/72
--- NOTE | 2018-08-08 15:14 | UC ---
- Progress Note Progress Note: Zohra comes back positive Gardnerella negative. Patient treated for both. Gonorrhea and chlamydia are still pending. Nursing to call patient to let her know of the results. Course/Dx - Diagnoses Provider Diagnoses: Candidiasis of genitalia in female, Bacterial vaginosis, Screening for STD ( sexually transmitted disease), URI (upper respiratory infection) Discharge - Sign-Out/Discharge Documenting (check all that apply): Patient Departure All imaging exams completed and their final reports reviewed: No Studies - Discharge Plan Condition: Stable Disposition: HOME Prescriptions: Fluconazole 150 MG TAB* [Diflucan 150 MG TAB*] 150 mg PO ONCE #1 tablet Ibuprofen TAB* [Motrin TAB* 800 MG] 800 mg PO Q6H #30 tab metroNIDAZOLE VAGINAL 0.75%* 1 applic VAGINAL BEDTIME #1 anuj Patient Education Materials: Bacterial Vaginosis (ED), Upper Respiratory Infection (ED), Yeast Infection (ED) Forms: *Work Release Referrals: Joann Mazariegos NP [Primary Care Provider] - 3 Days Additional Instructions: 1-Please f/u with PIPE LINE INSPECTOR for a PAP and further management in your Hx HPV. 2- Please take medications as directed. 3- Take Ibuprofen PO q6-8hrs prn after meals to alleviate swelling and sore throat 3- Specimen were sent to lab, if anything abnormal you will receive a call from us for further treatment. 4-If not improvement of symptoms please return to the urgent care or f/u with your PIPE LINE INSPECTOR in 3 days for further treatment - Billing Disposition and Condition Condition: STABLE Disposition: Home
--- NOTE | 2018-08-09 16:47 | UC ---
- Progress Note Progress Note: neg GC/CH neg Trich no change dylanj 08/09/18 Course/Dx - Diagnoses Provider Diagnoses: Candidiasis of genitalia in female, Bacterial vaginosis, Screening for STD ( sexually transmitted disease), URI (upper respiratory infection) Discharge - Sign-Out/Discharge Documenting (check all that apply): Post-Discharge Follow Up All imaging exams completed and their final reports reviewed: No Studies - Discharge Plan Condition: Stable Disposition: HOME Prescriptions: Fluconazole 150 MG TAB* [Diflucan 150 MG TAB*] 150 mg PO ONCE #1 tablet Ibuprofen TAB* [Motrin TAB* 800 MG] 800 mg PO Q6H #30 tab metroNIDAZOLE VAGINAL 0.75%* 1 applic VAGINAL BEDTIME #1 anuj Patient Education Materials: Bacterial Vaginosis (ED), Upper Respiratory Infection (ED), Yeast Infection (ED) Forms: *Work Release Referrals: Joann Mazariegos NP [Primary Care Provider] - 3 Days Additional Instructions: 1-Please f/u with FOUNDRY MOLDER for a PAP and further management in your Hx HPV. 2- Please take medications as directed. 3- Take Ibuprofen PO q6-8hrs prn after meals to alleviate swelling and sore throat 3- Specimen were sent to lab, if anything abnormal you will receive a call from us for further treatment. 4-If not improvement of symptoms please return to the urgent care or f/u with your FOUNDRY MOLDER in 3 days for further treatment - Billing Disposition and Condition Condition: STABLE Disposition: Home
== END 2018-08-07 18:41 | disposition home or self-care (01) ==
LOC: UCEAST 15:22
DX: B37.3 Candidiasis of vulva and vagina (principal); N76.0 Acute vaginitis; Z11.3 Encounter for screening for infections with a predominantly sexual mode of transmission; J06.9 Acute upper respiratory infection, unspecified; F17.210 Nicotine dependence, cigarettes, uncomplicated
CPT/HCPCS: 81003; 84702; 87086; 87480; 87491; 87510; 87591; 87651; 87661; 99212; A9270-GY; G0463

== ENCOUNTER 2019-01-27 19:01 | Emergency (ER) | payer OTHER ==
[2019-01-27 19:54] VITALS: BP 124/76
--- NOTE | 2019-01-27 20:37 | ED ---
GI/ HPI - HPI Summary HPI Summary: 28 yr old with the complaint of curd like vaginal discharge, and burning to the vulva area and in the vaginal area. Onset over the past month. She denies NV. She has had fever up to 101. She occasionally has ache in pelvis. - History of Current Complaint Chief Complaint: UCGU Time Seen by Provider: 01/27/19 19:56 Stated Complaint: UTI Hx Last Menstrual Period: depo Pain Intensity: 10 - Allergy/Home Medications Allergies/Adverse Reactions: Allergies Allergy/AdvReac Type Severity Reaction Status Date / Time No Known Allergies Allergy Verified 01/27/19 19:54 PMH/Surg Hx/FS Hx/Imm Hx Endocrine/Hematology History: Reports: Hx Thyroid Disease - Hyperthryoid Denies: Hx Diabetes Cardiovascular History: Denies: Hx Hypertension, Hx Pacemaker/ICD Respiratory History: Reports: Hx Asthma Denies: Hx Chronic Obstructive Pulmonary Disease (COPD) GI History: Denies: Hx Ulcer Musculoskeletal History: Reports: 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 Right ovary remains. - Immunization History Date of Tetanus Vaccine: Unk Date of Influenza Vaccine: Fall 2012 Infectious Disease History: No Infectious Disease History: Denies: Hx Clostridium Difficile, Hx Hepatitis, Hx Human Immunodeficiency Virus (HIV), Hx of Known/Suspected MRSA, Hx Shingles, Hx Tuberculosis, Hx Known/ Suspected VRE, Hx Known/Suspected VRSA, History Other Infectious Disease, Traveled Outside the [place] in Last 30 Days - Family History Known Family History: Positive: Hypertension, Diabetes Family History: lupus - Social History Alcohol Use: None Hx Substance Use: No Substance Use Type: Reports: None Substance Use Comment - Amount & Last Used: oxycodone Hx Tobacco Use: Yes Smoking Status (MU): Heavy Every Day Tobacco Smoker Amount Used/How Often: 3 cigarettes/day Have You Smoked in the Last Year: Yes Review of Systems Positive: Fever Positive: dysuria, other - discharge All Other Systems Reviewed And Are Negative: Yes Physical Exam Triage Information Reviewed: Yes Vital Signs On Initial Exam: Initial Vitals Temp Pulse Resp BP Pulse Ox 97.4 F 65 18 124/76 98 01/27/19 19:47 01/27/19 19:47 01/27/19 19:47 01/27/19 19:47 01/27/19 19:47 Vital Signs Reviewed: Yes Appearance: Positive: Well-Appearing, No Pain Distress Skin: Positive: Warm, Skin Color Reflects Adequate Perfusion Head/Face: Positive: Normal Head/Face Inspection Eyes: Positive: EOMI, CATHERINE ENT: Positive: Normal ENT inspection Neck: Positive: Nontender Respiratory/Lung Sounds: Positive: Clear to Auscultation, Breath Sounds Present Cardiovascular: Positive: RRR. Negative: Murmur Abdomen Description: Positive: Nontender. Negative: CVA Tenderness (R), CVA Tenderness (L) Pelvic Exam: Positive: Other - The patient pelvic exam was done with assistance of female nurse beader tender. THe patient has curd like vaginal discharge. She has cervical motion tenderness. No adnexal tenderness. Musculoskeletal: Positive: Strength/ROM Intact Neurological: Positive: Sensory/Motor Intact, Alert, Oriented to Person Place, Time, CN Intact II-III, Normal Gait, Speech Normal Psychiatric: Positive: Normal Diagnostics - Vital Signs Vital Signs Temp Pulse Resp BP Pulse Ox 01/27/19 19:47 97.4 F 65 18 124/76 98 - Laboratory Lab Results: Lab Results 01/27/19 01/27/19 Range/Units 20:16 20:20 POC Urine Color Yellow POC Urine Clarity Slightly cloudy POC Urine pH 5.5 (5-9) POC Ur Specif Monona 1.025 (1.010-1.030) POC Urine Protein Negative (Negative) POC Ur Glucose (UA) Negative (Negative) POC Urine Ketones Negative (Negative) POC Urine Blood Negative (Negative) POC Urine Nitrite Negative (Negative) POC Urine Bilirubin Negative (Negative) POC Urine Urobilinogen 0.2 (Negative) POC U Leukocyte Esteras 1+ A (Negative) POC Ur Test Negative (Negative) Lab Statement: Any lab studies that have been ordered have been reviewed, and results considered in the medical decision making process. GIGU Course/Dx - Course Course Of Treatment: 28 yr old with vaginal discharge, cervical motion tenderness, and who has had fever recently. Will treat like this is PID. Her urine is trace leuks but i believe from the discharge. Not prescribing doxycyline since she says this caused her an esophageal ulcer in the past. Will give two doses of 1 gram zithromax a week apart as recommended on up to date. Rocephin, flagyl and diflucan also prescribed. - Diagnoses Provider Diagnoses: PID (acute pelvic inflammatory disease), Vaginitis Discharge - Sign-Out/Discharge Documenting (check all that apply): Patient Departure All imaging exams completed and their final reports reviewed: No Studies - Discharge Plan Condition: Good Disposition: HOME Prescriptions: Azithromycin TAB* [Zithromax TAB (Z-NOEMI) 250 mg #6 tabs] 1,000 mg PO ONCE #4 tab Fluconazole 150 MG TAB* [Diflucan 150 MG TAB*] 150 mg PO ONCE #2 tablet metroNIDAZOLE [Flagyl 500 MG TAB] 500 mg PO TID #21 tab Patient Education Materials: Pelvic Inflammatory Disease (DC), Vaginitis (ED) Referrals: Joann Mazariegos NP [Primary Care Provider] - 2 Days - Billing Disposition and Condition Condition: GOOD Disposition: Home
[2019-01-27] MEDS ORDERED: Azithromycin TAB* 250 MG PO ONE (20:43)
[2019-01-27] MEDS ORDERED: cefTRIAXone VIAL(*) 250 MG VIAL IM ONE (20:43)
[2019-01-27] MEDS ORDERED: metroNIDAZOLE TAB* 250 MG PO ONE (20:44)
[2019-01-27] MEDS ORDERED: Lidocaine 1%* 5 ML VIAL ONE (20:49)
[2019-01-29 12:49] LABS: Neisseria gonorrhoeae (GC) RNA Negative (Negative)
[2019-01-29 13:04] LABS: Trichomonas vaginalis Result Negative (Negative)
== END 2019-01-27 21:10 | disposition home or self-care (01) ==
LOC: UCEAST 19:01
DX: N73.0 Acute parametritis and pelvic cellulitis (principal); N76.0 Acute vaginitis; E03.9 Hypothyroidism, unspecified; F17.210 Nicotine dependence, cigarettes, uncomplicated
CPT/HCPCS: 81003; 84702; 87086; 87480; 87491; 87510; 87591; 87661; 96372; 99213; A9270-GY; G0463; J0696

== ENCOUNTER 2019-02-01 13:01 | Emergency (ER) | payer OTHER ==
[2019-02-01 13:29] VITALS: BP 106/63
--- NOTE | 2019-02-01 13:40 | UC ---
Complaint Female HPI - HPI Summary HPI Summary: seen 01/27 19 dx with PID and vaginal yeast----tx with Rocephin Zithromax, flagyl and diflucan-----Patient returns here because see still has external vaginal and urethral pain externally---she reports no fevers, eating and drinking well, vaginal d/c has significantly decreased-has not follow with pcp-- -patient reports sexual activity with a male partner who may have not been faithful - History Of Current Complaint Chief Complaint: UCGU Stated Complaint: PERSONAL Time Seen by Provider: 02/01/19 13:28 Hx Obtained From: Patient Hx Last Menstrual Period: depo ?: No Onset/Duration: Gradual Onset, Lasting Weeks, Still Present Timing: Constant Pain Intensity: 5 Pain Scale Used: 0-10 Numeric Character: Burning Aggravating Factor(s): Movement, Urination Alleviating Factor(s): Nothing Associated Signs And Symptoms: Positive: Vaginal Discharge - Allergies/Home Medications Allergies/Adverse Reactions: Allergies Allergy/AdvReac Type Severity Reaction Status Date / Time No Known Allergies Allergy Verified 02/01/19 13:29 PMH/Surg Hx/FS Hx/Imm Hx Previously Healthy: No - NORMAN on Suboxone Endocrine History: Hyperthyroidism Psychological History: Anxiety - Surgical History Surgical History: Yes Surgery Procedure, Year, and Place: torsion ovaries as child; Jul 2015 [place] --Right distal tibia-curettage of lesion with bone grafting/prohylactic internal fixation; appendix removed during torsion surgery. Right ovary remains. - Family History Known Family History: Positive: Hypertension, Diabetes Family History: lupus - Social History Occupation: Unemployed Lives: With Family Alcohol Use: None Substance Use Type: None Substance Use Comment - Amount & Last Used: oxycodone Smoking Status (MU): Heavy Every Day Tobacco Smoker Amount Used/How Often: 3 cigarettes/day Have You Smoked in the Last Year: Yes Household Exposure Type: Cigarettes - Immunization History Most Recent Influenza Vaccination: Not UTD Review of Systems All Other Systems Reviewed And Are Negative: Yes Constitutional: Positive: Negative Skin: Positive: Negative Eyes: Positive: Negative ENT: Positive: Negative Respiratory: Positive: Negative Cardiovascular: Positive: Negative Gastrointestinal: Positive: Negative Genitourinary: Positive: Dysuria, Vaginal/Penile Burning, Vaginal/Penile Discharge, Vaginal/Penile Pain Motor: Positive: Negative Neurovascular: Positive: Negative Musculoskeletal: Positive: Negative Neurological: Positive: Negative Psychological: Positive: Negative Is Patient Immunocompromised?: No Physical Exam Triage Information Reviewed: Yes Appearance: Well-Appearing, No Pain Distress, Well-Nourished Vital Signs: Initial Vital Signs Temp 98.9 F 02/01/19 13:25 Pulse 84 02/01/19 13:25 Resp 17 02/01/19 13:25 BP 106/63 02/01/19 13:25 Pulse Ox 100 02/01/19 13:25 Vital Signs Reviewed: Yes Eye Exam: Normal Eyes: Positive: Conjunctiva Clear ENT Exam: Normal ENT: Positive: Normal ENT inspection, Hearing grossly normal. Negative: Trismus , Muffled voice, Hoarse voice Dental Exam: Normal Neck exam: Normal Neck: Positive: Supple, Nontender Respiratory Exam: Normal Respiratory: Positive: Chest non-tender, No respiratory distress, No accessory muscle use Cardiovascular Exam: Normal Cardiovascular: Positive: RRR, Pulses Normal, Brisk Capillary Refill Abdominal Exam: Normal Abdomen Description: Positive: Nontender, No Organomegaly, Soft. Negative: CVA Tenderness (R), CVA Tenderness (L), Distended, Guarding, McBurney's Point Tenderness, Peritoneal Signs Bowel Sounds: Positive: Present Pelvic Exam: Positive: No Cerv. Motion Tender, No Masses, Discharge - thick white, Other - introitus discomoft with speculm exam. Negative: Active Bleeding , Tender Adnexa, Tender Uterus, Ulcers Musculoskeletal Exam: Normal Musculoskeletal: Positive: Strength Intact, ROM Intact, No Edema Neurological Exam: Normal Neurological: Positive: Alert, Muscle Tone Normal Psychological Exam: Normal Skin Exam: Normal Complaint Female Dx - Course Course Of Treatment: Diflucan for 7 days, external lotrisone and lidocaine---[facility] - Differential Dx/Diagnosis Provider Diagnosis: Vulvovaginal candidiasis Discharge - Sign-Out/Discharge Documenting (check all that apply): Patient Departure All imaging exams completed and their final reports reviewed: No Studies - Discharge Plan Condition: Stable Disposition: HOME Prescriptions: Clotrimazole/Betamethasone* [Lotrisone Cream*] 1 applic TOPICAL BID #45 gm Fluconazole [Diflucan 150 MG (NF)] 150 mg PO ONCE 7 Days #1 tab Lidocaine 2% JELLY* 1 applic TOPICAL TID PRN 5 Days #1 tube PRN Reason: pain Patient Education Materials: Yeast Infection (ED), Vaginitis (ED) Referrals: [facility] [Outside] - 5 Days Iván Castillo MD [Primary Care Provider] - - Billing Disposition and Condition Condition: STABLE Disposition: Home
[2019-02-02 13:56] LABS: ABS Basophils 0.1 10^3/ul (0-0.2); ABS Eosinophils 0.2 10^3/ul (0-0.6); ABS Lymphocytes 1.9 10^3/ul (1.0-4.8); ABS Monocytes 0.5 10^3/ul (0-0.8); ABS Neutrophils 4.4 10^3/ul (1.5-7.7); Eosinophil % 2.3 %; Hematocrit 40 % (35-47); Hemoglobin 13.7 g/dL (12.0-16.0); Lymphocyte % 26.8 %; Mean Corpuscular HGB Conc 34 g/dL (31-36); Mean Corpuscular Hemoglobin 31 pg (27-31); Mean Corpuscular Volume 90 fL (80-97); Nucleated Red Blood Cells % 0.2; Platelet Count 246 10^3/uL (150-450); Red Blood Count 4.45 10^6 /uL (3.70-4.87); Red Cell Distribution Width 13 % (10-15)
[2019-02-02 14:11] LABS: Albumin 4.5 g/dL (3.2-5.2); Calcium 9.7 mg/dL (8.6-10.3); Potassium 4.2 mmol/L (3.5-5.0); Total Bilirubin 0.4 mg/dL (0.2-1.0)
[2019-02-02 14:17] LABS: BUN/Creatinine Ratio 23.8 (8-20); EGFR African American 136.2 (>60); EGFR Non-African American 112.5 (>60); Globulin 2.3 g/dL (2-4); Total Protein 6.8 g/dL (6.4-8.9)
[2019-02-02 17:20] LABS: HIV 4th Generation Negative (Negative)
[2019-02-03 15:11] LABS: Trichomonas vaginalis Result Negative (Negative)
[2019-02-03 15:21] LABS: Neisseria gonorrhoeae (GC) RNA Negative (Negative)
[2019-02-04 19:42] LABS: HSV 1 PCR Negative (Negative); Herpes Source LABIA
== END 2019-02-01 14:47 | disposition home or self-care (01) ==
LOC: UCEAST 13:01
DX: B37.3 Candidiasis of vulva and vagina (principal); E03.9 Hypothyroidism, unspecified; F41.9 Anxiety disorder, unspecified; F17.210 Nicotine dependence, cigarettes, uncomplicated
CPT/HCPCS: 36415; 80053; 81003; 84702; 85025; 87086; 87389; 87480; 87491; 87510; 87529; 87591; 87661; 99212; G0463

== ENCOUNTER 2019-06-06 21:07 | Emergency (ER) | payer OTHER ==
[2019-06-06 21:17] VITALS: BP 118/63
--- NOTE | 2019-06-06 21:19 | UC ---
Throat Pain/Nasal Thanh HPI - HPI Summary HPI Summary: Patient is 28-year-old female presenting with mother and daughter for nasal congestion, productive cough, and chest tightness 2 weeks. Notes green sputum. Notes intermittent wheezing and shortness of breath. She states cough is keeping her up at night. Notes sensation that something is stuck in her throat. Notes burning sensation in chest when she coughs that is different from her acid reflux. Denies chest pain. Patient denies ear pain and sore throat. Denies fever, nausea, vomiting. Notes intermittent chills. Denies body aches and headaches. Notes history of childhood asthma. Patient states she is a heavy smoker. Patient states she has been using her albuterol inhaler at home with some relief. Denies taking any meds other medications for her symptoms. - History of Current Complaint Stated Complaint: chest CONGESTION Hx Obtained From: Patient Hx Last Menstrual Period: depo Onset/Duration: Gradual Onset, Lasting Weeks Severity: Mild Pain Intensity: 3 Pain Scale Used: 0-10 Numeric - Allergies/Home Medications Allergies/Adverse Reactions: Allergies Allergy/AdvReac Type Severity Reaction Status Date / Time No Known Allergies Allergy Verified 06/06/19 21:17 Home Medications: Home Medications Escitalopram * [Lexapro *] 20 mg PO DAILY 06/06/19 [History Confirmed 06/06/19] PMH/Surg Hx/FS Hx/Imm Hx Respiratory History: Asthma - Surgical History Surgical History: Yes Surgery Procedure, Year, and Place: torsion ovaries as child; Jul 2015 [place] --Right distal tibia-curettage of lesion with bone grafting/prohylactic internal fixation; appendix removed during torsion surgery. Right ovary remains. - Family History Known Family History: Positive: Hypertension, Diabetes Family History: lupus - Social History Alcohol Use: None Substance Use Type: None Substance Use Comment - Amount & Last Used: oxycodone Smoking Status (MU): Heavy Every Day Tobacco Smoker Amount Used/How Often: 3 cigarettes/day Have You Smoked in the Last Year: Yes Household Exposure Type: Cigarettes - Immunization History Most Recent Influenza Vaccination: Not UTD Review of Systems All Other Systems Reviewed And Are Negative: Yes Constitutional: Positive: Chills. Negative: Fever ENT: Positive: Sinus Congestion. Negative: Sore Throat, Ear Ache, Nasal Discharge, Sinus Pain/Tenderness Respiratory: Positive: Shortness Of Breath, Cough Cardiovascular: Positive: Negative. Negative: Palpitations, Chest Pain Gastrointestinal: Positive: Negative. Negative: Abdominal Pain, Vomiting, Diarrhea, Nausea Musculoskeletal: Positive: Negative. Negative: Arthralgia, Myalgia Neurological: Negative: Headache Physical Exam Triage Information Reviewed: Yes Appearance: Well-Appearing, No Pain Distress, Well-Nourished Vital Signs: Initial Vital Signs Temp 97.1 F 06/06/19 21:13 Pulse 77 06/06/19 21:13 Resp 18 06/06/19 21:13 BP 118/63 06/06/19 21:13 Pulse Ox 100 06/06/19 21:13 Vital Signs Reviewed: Yes Eyes: Positive: Conjunctiva Clear ENT: Positive: Hearing grossly normal, Pharyngeal erythema, Nasal congestion, Nasal drainage - Postnasal drip noted, TMs normal, Uvula midline. Negative: TM bulging, TM dull, TM red, Tonsillar swelling, Tonsillar exudate, Trismus, Muffled voice, Hoarse voice, Sinus tenderness Neck exam: Normal Neck: Positive: Supple, Nontender, No Lymphadenopathy Respiratory Exam: Normal Respiratory: Positive: Lungs clear, Normal breath sounds, No respiratory distress, No accessory muscle use. Negative: Crackles, Rhonchi, Stridor, Wheezing Cardiovascular Exam: Normal Cardiovascular: Positive: RRR. Negative: Tachycardia Neurological: Positive: Alert Psychological: Positive: Age Appropriate Behavior Skin Exam: Normal Throat Pain/Nasal Course/Dx - Course Course Of Treatment: Educated patient on upper respiratory symptoms and acute bronchitis. Informed her that the cause is most likely viral. Patient given Tessalon Perles here for tonight and for the morning and also prescription for home to help relieve cough. Patient prescribed Mucinex D to help reduce mucous production. I also provided the patient with an albuterol inhaler refill. Instructed her to use inhaler as directed for relief of shortness of breath and wheezing. Informed her that she may also use nasal sprays [id number] as directed to help relieve congestion. Discussed with patient to refrain from smoking while symptoms are present. Instructed her to follow with PCP if symptoms persist. Patient voiced wanting to quit smoking. I provided her with a pamphlet about smoking cessation and encouraged her to follow up with her PCP for further aid in smoking cessation. Patient voiced understanding and agreed with treatment plan. - Differential Dx/Diagnosis Provider Diagnosis: Upper respiratory infection, Acute bronchitis Discharge ED - Sign-Out/Discharge Documenting (check all that apply): Patient Departure All imaging exams completed and their final reports reviewed: No Studies - Discharge Plan Condition: Stable Disposition: HOME Prescriptions: Albuterol HFA INHALER* [Ventolin HFA Inhaler*] 1 - 2 puff INH Q6H PRN #1 mdi PRN Reason: Sob/Wheezing Benzonatate CAP* [Tessalon 100 MG CAP*] 100 mg PO TID PRN #30 cap PRN Reason: Cough Guaifenesin/Pseudoephedrne HCl [Mucinex D ER 1,200-120 mg Tab] 1 each PO BID PRN #14 tab.er.12h PRN Reason: Congestion Patient Education Materials: Acute Bronchitis (ED) Referrals: Jasmin Messer NP [Primary Care Provider] - If Needed Additional Instructions: As discussed, you have acute bronchitis. This is most likely caused by a virus. Take tessalon perles and mucinex D as prescribed to relieve cough and mucus production. He may have increased blood pressure taking Mucinex D. You may stop taking it at any time if you do not like how it makes it feel. You may use over the counter nasal sprays as directed for symptomatic relief. You can continue to use her albuterol inhaler for shortness of breath and wheezing. Refrain from smoking while your symptoms are present. Follow-up with your PCP if symptoms persist. Follow-up with your PCP for further aid in smoking cessation. - Billing Disposition and Condition Condition: STABLE Disposition: Home - Attestation Statements Provider Attestation: I was available for consult. This patient was seen by the EARNESTINE. The patient was not presented to, seen by, or examined by me. -Patsy
[2019-06-06] MEDS ORDERED: Benzonatate CAP* 100 MG PO ONE (21:38)
== END 2019-06-06 22:07 | disposition home or self-care (01) ==
LOC: UCEAST 21:07
DX: J06.9 Acute upper respiratory infection, unspecified (principal); J20.9 Acute bronchitis, unspecified; J45.909 Unspecified asthma, uncomplicated; F17.210 Nicotine dependence, cigarettes, uncomplicated
CPT/HCPCS: 99212; A9270-GY; G0463

== ENCOUNTER 2019-09-05 07:35 | Emergency (ER) | payer OTHER ==
[2019-09-05 07:51] VITALS: BP 134/66
--- NOTE | 2019-09-05 08:21 | UC ---
Respiratory Complaint HPI - HPI Summary HPI Summary: Patient is a 28-year-old female who developed severe headache, myalgias, cough and wheezing about 6 hours ago. Earlier this morning her temperature was 102. She has a history of childhood asthma. She occasionally has to use a nebulizer or metered-dose inhaler when she has colds. She denies any shortness of breath. - History of Current Complaint Chief Complaint: UCGeneralIllness Stated Complaint: WHEEZING CHEST CONGESTION FEVER HEADACHE Time Seen by Provider: 09/05/19 08:20 Hx Obtained From: Patient Hx Last Menstrual Period: depo Onset/Duration: Sudden Onset, Lasting Hours Severity Initially: Severe Severity Currently: Severe Pain Intensity: 9 Pain Scale Used: 0-10 Numeric Character: Cough: Nonproductive Aggravating Factors: Nothing Alleviating Factors: Nothing Associated Signs And Symptoms: Positive: Wheezing, Nasal Congestion, Sinus Discomfort - Allergies/Home Medications Allergies/Adverse Reactions: Allergies Allergy/AdvReac Type Severity Reaction Status Date / Time No Known Allergies Allergy Verified 09/05/19 07:51 PMH/Surg Hx/FS Hx/Imm Hx Previously Healthy: Yes Respiratory History: Asthma, Bronchitis - Surgical History Surgical History: Yes Surgery Procedure, Year, and Place: torsion ovaries as child; Jul 2015 [place] --Right distal tibia-curettage of lesion with bone grafting/prohylactic internal fixation; appendix removed during torsion surgery. Right ovary remains. - Family History Known Family History: Positive: Hypertension, Diabetes Family History: lupus - Social History Alcohol Use: Rare Substance Use Type: None Substance Use Comment - Amount & Last Used: oxycodone Smoking Status (MU): Heavy Every Day Tobacco Smoker Amount Used/How Often: 3 cigarettes/day Have You Smoked in the Last Year: Yes Household Exposure Type: Cigarettes - Immunization History Most Recent Influenza Vaccination: Not UTD Review of Systems All Other Systems Reviewed And Are Negative: Yes Constitutional: Positive: Fever, Chills, Fatigue Skin: Positive: Negative Eyes: Positive: Negative ENT: Positive: Nasal Discharge, Sinus Congestion, Sinus Pain/Tenderness Respiratory: Positive: Cough, Other - wheezing Cardiovascular: Positive: Negative Gastrointestinal: Positive: Negative Genitourinary: Positive: Negative Motor: Positive: Negative Neurovascular: Positive: Negative Musculoskeletal: Positive: Myalgia Neurological: Positive: Headache Psychological: Positive: Negative Physical Exam Triage Information Reviewed: Yes Appearance: Well-Appearing, No Pain Distress, Well-Nourished Vital Signs: Initial Vital Signs Temp 100.5 F 09/05/19 07:46 Pulse 96 09/05/19 07:46 Resp 18 09/05/19 07:46 BP 134/66 09/05/19 07:46 Pulse Ox 96 09/05/19 07:46 Vital Signs Reviewed: Yes Eyes: Positive: Conjunctiva Clear ENT: Positive: Pharynx normal, Nasal congestion, Nasal drainage, TMs normal, Sinus tenderness. Negative: Tonsillar swelling, Tonsillar exudate, Trismus, Muffled voice, Hoarse voice, Dental tenderness, Uvula midline Dental Exam: Normal Neck: Positive: Supple, Nontender, No Lymphadenopathy Respiratory: Positive: No respiratory distress, Wheezing Cardiovascular: Positive: RRR, No Murmur Musculoskeletal: Positive: ROM Intact, No Edema Neurological: Positive: Alert Psychological Exam: Normal Skin Exam: Normal Diagnostics - Laboratory Lab Results: inluenza negative Re-Evaluation - Re-Evaluation First Eval Re-Evaluation Time: 09:02 Change: Improved - lunges clear/subjectively feels better Respiratory Course/Dx - Differential Dx/Diagnosis Provider Diagnosis: Influenza-like illness, Bronchospasm Discharge ED - Sign-Out/Discharge Documenting (check all that apply): Patient Departure All imaging exams completed and their final reports reviewed: No Studies - Discharge Plan Condition: Stable Disposition: HOME Prescriptions: Oseltamivir CAP* [Tamiflu CAP*] 75 mg PO BID #10 cap predniSONE 20 mg TAB [Deltasone 20 MG TAB*] 40 mg PO DAILY #10 tab Patient Education Materials: Influenza (ED) Referrals: Jasmin Messer NP [Primary Care Provider] - 3 Days (recheck in 3-4 days if not improved ) Additional Instructions: use your inhaler as directed recheck for worsening symptoms rest/fluids - Billing Disposition and Condition Condition: STABLE Disposition: Home
[2019-09-05 08:23] LABS: Influenza A Molecular NEGATIVE (Negative); Influenza B Molecular NEGATIVE (Negative)
[2019-09-05] MEDS ORDERED: Ipratropium 0.5MG/2.5ML NEB* 0.5 MG/2.5 ML NEB.SOLN INH ONE (08:27)
[2019-09-05] MEDS ORDERED: Acetaminophen TAB* 325 MG PO ONE (08:27)
[2019-09-05] MEDS ORDERED: Albuterol 2.5 MG/3 ML NEB.SOL* (0.083%) INH ONE (08:27)
== END 2019-09-05 09:05 | disposition home or self-care (01) ==
LOC: UCEAST 07:35
DX: J98.01 Acute bronchospasm (principal); R51 Headache; R05 Cough; R06.2 Wheezing; M79.10 Myalgia, unspecified site; R50.9 Fever, unspecified; J45.909 Unspecified asthma, uncomplicated; J34.89 Other specified disorders of nose and nasal sinuses; R53.83 Other fatigue; F17.210 Nicotine dependence, cigarettes, uncomplicated
CPT/HCPCS: 99212; A9270-GY; G0463